=== PATIENT | female | born 1940 | race Caucasian/White ===

== ENCOUNTER 2019-12-04 15:10 | Outpatient (CLI) | payer MEDICARE, OTHER, SELFPAY ==
--- NOTE | 2019-12-04 15:13 | MM_ITS ---
WS: [id number] SCREENING DIGITAL MAMMOGRAM WITH CAD HISTORY: SCREENING COMPARISON: 01/24/2018 and 07/08/2015 Bilateral CC and MLO views submitted. Computer aided detection analyzed. Breast composition: There are scattered areas of fibroglandular density. No suspicious masses, microc alcifications or architectural distortion. Extensive bilateral vascular calcifications. MM/[place] [id number] IMPRESSION: BI-RADS: 2-Benign FOLLOW UP: 1 Year Follow-up
== END 2019-12-04 15:11 | disposition home or self-care (01) ==
LOC: RADSHAW 15:10
PROVIDERS: Family Provider Family Medicine; PCP Nurse Practitioner Family; Visit Provider Nurse Practitioner Family
DX: Z12.31 Encounter for screening mammogram for malignant neoplasm of breast (principal)
CPT/HCPCS: 77067

== ENCOUNTER 2021-02-08 13:29 | Outpatient (CLI) | payer MEDICARE, BC, SELFPAY ==
--- NOTE | 2021-02-08 13:48 | US_ITS ---
WS: [id number] TRANSABDOMINAL PELVIC AND TRANSVAGINAL PELVIC ULTRASOUND HISTORY: PELVIC PAIN COMPARISON: None available. Uterus: 6.3 cm x 3.1 cm x 2.3 cm. Small anteverted uterus. Very echogenic uterus containing calcifica tions. No fibroid identified. Endometrium: 0.2 cm. Thin endometrium is poorly visualized throughout its course. Poor visualization is in part due to the multiple senile calcifications within the uterus. Right ovary: Not identified. No adnexal mass. Left ovary: 1.2 cm x 0.9 cm x 1.5 cm. Small caliber atrophic ovary. No additional mass. No free fluid. US/US pelvic with transvaginal IMPRESSION: 1. Small caliber atrophic uterus with calcifications. 2. Poor visualization of the endometrium. 3. No pelvic mass.
== END 2021-02-08 13:30 | disposition home or self-care (01) ==
LOC: RAD 13:39
PROVIDERS: PCP Nurse Practitioner Family; Visit Provider Nurse Practitioner Family
DX: R10.2 Pelvic and perineal pain (principal); N85.8 Other specified noninflammatory disorders of uterus
CPT/HCPCS: 76830; 76856

== ENCOUNTER 2021-09-15 13:22 | Outpatient (CLI) | payer MEDICARE, BC, SELFPAY ==
--- NOTE | 2021-09-15 13:29 | MM_ITS ---
WS: [id number] BILATERAL DIGITAL SCREENING MAMMOGRAPHY WITH CAD CLINICAL INFORMATION: SCREENING HISTORY: Screening mammogram. No current complaints. COMPARISON: December 04, 2019 TECHNIQUE: Bilateral CC and MLO views. FINDINGS: Scattered fibroglandular densities bilaterally. Lucent centered calcifications. Eggshell calcificatio ns. Vascular calcification. No suspicious focal mass, asymmetry, calcifications, or architectural dis tortion. No evidence of malignancy. MM/[place] [id number] IMPRESSION: BI-RADS: 2-Benign FOLLOW UP: 1 Year Follow-up Recommend return to annual screening mammography.
== END 2021-09-15 13:23 | disposition home or self-care (01) ==
LOC: RADSHAW 13:27
PROVIDERS: PCP Nurse Practitioner Family; Visit Provider Nurse Practitioner Family
DX: Z12.31 Encounter for screening mammogram for malignant neoplasm of breast (principal)
CPT/HCPCS: 77067

== ENCOUNTER → 2022-01-19 13:09 | Outpatient (BNVA) | payer MEDICARE, BC, SELFPAY | PROVIDERS: PCP Nurse Practitioner Family; Visit Provider Internal Medicine Cardiovascular Disease | DX: R06.02 Shortness of breath (principal); R42 Dizziness and giddiness; Z79.01 Long term (current) use of anticoagulants; I47.1 Supraventricular tachycardia; R03.0 Elevated blood-pressure reading, without diagnosis of hypertension | CPT/HCPCS: 99214 ==

== ENCOUNTER 2022-01-31 14:17 | Outpatient (CLI) | payer MEDICARE, BC, SELFPAY ==
[2022-01-31 14:57] LABS: Basophils % 0.6 %; Eosinophils # 0.2 10^3/uL (0.0-0.8); Eosinophils % 3.1 %; Hematocrit 36.1 % (37.0-47.0); Hemoglobin 11.7 g/dL (11.5-15.3); Lymphocytes # 2.7 10^3/uL (0.8-4.8); Lymphocytes % 39.6 %; Mean Corpuscular HGB Conc 32.4 g/dL (30.0-36.0); Mean Corpuscular Hemoglobin 27.5 pg (28.0-34.0); Mean Corpuscular Volume 84.9 fl (81-99); Mean Platelet Volume 9.6 fL (7.4-10.4); Monocytes # 0.6 10^3/uL (0.2-0.9); Monocytes % 8.4 %; Neutrophils # 3.23 10^3/uL (1.8-7.7); Neutrophils % 47.9 %; Nucleated Red Blood Cells % 0 %; Platelet Count 260 10^3/cmm (130-400); Red Blood Count 4.25 10^6/uL (4.1-5.3); Red Cell Distribution Width 13.9 % (12.1-15.1); White Blood Count 6.8 10^3/uL (4.0-10.0)
[2022-01-31 15:30] LABS: Anion Gap 17.4 (5-19); Blood Urea Nitrogen 19 mg/dL (8-23); Calcium 9.9 mg/dL (8.5-10.5); Carbon Dioxide 24 mmol/L (22-29); Chloride 102 mmol/L (98-107); Glucose 92 mg/dL (65-115); Osmolality Calculated 290 mOsm/kg (285-295); Potassium 4.4 mmol/L (3.5-5.1); Sodium 139 mmol/L (136-145); Thyroid Stimulating Hormone 2.98 uIU/mL (0.27-4.20)
== END 2022-01-31 14:18 | disposition home or self-care (01) ==
LOC: LAB 14:24
PROVIDERS: PCP Nurse Practitioner Family; Visit Provider Internal Medicine Cardiovascular Disease
DX: R06.02 Shortness of breath (principal); R42 Dizziness and giddiness; Z79.01 Long term (current) use of anticoagulants; I47.1 Supraventricular tachycardia; N18.9 Chronic kidney disease, unspecified
CPT/HCPCS: 36415; 80048; 84443; 85025

== ENCOUNTER 2022-03-07 14:19 | Outpatient (CLI) | payer MEDICARE, OTHER, SELFPAY ==
--- NOTE | 2022-03-07 14:27 | XR_ITS ---
WS: [email or web address] XR cervical spine 3V* [id number] REASON FOR EXAM: NECK PAIN FINDINGS: Exaggerated lordosis of the cervical spine on the lateral view. Mild scoliosis of the cervical spine on the AP view convex left. There is a wedge-shaped compression deformity of C6 which appears chronic in nature with large anteri or osteophytes. No focal abnormality in the remainder of the cervical vertebrae. Severe narrowing of the C5-C6 and C6-C7 disc space spaces with 2 mm of anterolisthesis of C5 in relat ion to C6. Severe degenerative arthropathy in the uncovertebral joints on the right C3-C7. Milder changes on the left. Normal facet joint alignment. XR/XR cervical spine 3V* [id number] IMPRESSION: Altered cervical spine curvature as above. Degenerative spondylosis most severe C5-C6 as above. There has been progression of the degenerative spondylosis and the exaggerated lordosis compared to the cervical spine of 11/12/2008.
--- NOTE | 2022-03-07 14:28 | XR_ITS ---
WS: [email or web address] XR thoracic spine 2V [id number] REASON FOR EXAM: ACUTE, MIDLINE THORACIC BACK PAIN FINDINGS: Rightward scoliosis of the thoracic spine. Mild kyphosis Moderately severe decrease bone density. There are mild concave endplate compression deformities of T8-T12. Difficult to evaluate these verteb francesca on the lateral due to the scoliosis and decreased bone density. There appear to be degenerative d isc changes indicating these findings are chronic. XR/XR thoracic spine 2V [id number] IMPRESSION: Scoliosis. No definite acute abnormality.
== END 2022-03-07 14:20 | disposition home or self-care (01) ==
PROVIDERS: PCP Nurse Practitioner Family; Visit Provider Nurse Practitioner Family
DX: M54.2 Cervicalgia (principal); M54.6 Pain in thoracic spine; M41.84 Other forms of scoliosis, thoracic region; M47.892 Other spondylosis, cervical region
CPT/HCPCS: 72040; 72070

== ENCOUNTER 2022-03-23 14:22 | Outpatient (RCR) | payer MEDICARE, OTHER, SELFPAY | END 2022-03-28 23:59 | disposition home or self-care (01) | LOC: SPT 14:22 | PROVIDERS: PCP Nurse Practitioner Family; Referring Provider Nurse Practitioner Family; Visit Provider Nurse Practitioner Family | DX: S39.011D Strain of muscle, fascia and tendon of abdomen, subsequent encounter (principal); X58.XXXD Exposure to other specified factors, subsequent encounter; M54.2 Cervicalgia; M54.6 Pain in thoracic spine | CPT/HCPCS: 97161 ==

== ENCOUNTER 2022-03-29 06:00 | Outpatient (RCR) | payer MEDICARE, OTHER, SELFPAY | END 2022-04-27 23:59 | disposition home or self-care (01) | LOC: SPT 06:00 | PROVIDERS: PCP Nurse Practitioner Family; Referring Provider Nurse Practitioner Family; Visit Provider Nurse Practitioner Family | DX: M54.2 Cervicalgia (principal); R10.9 Unspecified abdominal pain; M25.511 Pain in right shoulder | CPT/HCPCS: 97110 ==

== ENCOUNTER 2022-04-28 06:00 | Outpatient (RCR) | payer MEDICARE, OTHER, SELFPAY | END 2022-05-28 23:59 | disposition home or self-care (01) | LOC: SPT 06:00 | PROVIDERS: PCP Nurse Practitioner Family; Referring Provider Nurse Practitioner Family; Visit Provider Nurse Practitioner Family | DX: M54.2 Cervicalgia (principal); R10.9 Unspecified abdominal pain; M25.511 Pain in right shoulder | CPT/HCPCS: 97110 ==

== ENCOUNTER 2022-05-29 06:00 | Outpatient (RCR) | payer MEDICARE, OTHER, SELFPAY | END 2022-06-07 23:59 | disposition home or self-care (01) | LOC: SPT 06:00 | PROVIDERS: PCP Nurse Practitioner Family; Visit Provider Nurse Practitioner Family | DX: M54.2 Cervicalgia (principal); R10.9 Unspecified abdominal pain; M25.511 Pain in right shoulder | CPT/HCPCS: 97110 ==

== ENCOUNTER → 2022-07-27 15:26 | Outpatient (BNVA) | payer MEDICARE, OTHER, SELFPAY | PROVIDERS: Visit Provider Internal Medicine Cardiovascular Disease | DX: Z79.01 Long term (current) use of anticoagulants (principal); R53.83 Other fatigue; R06.02 Shortness of breath; N18.9 Chronic kidney disease, unspecified; R25.2 Cramp and spasm; I47.1 Supraventricular tachycardia; R03.0 Elevated blood-pressure reading, without diagnosis of hypertension; R42 Dizziness and giddiness | CPT/HCPCS: 36415; 80048; 83735; 83880; 84443; 85025; 99214 ==

== ENCOUNTER 2022-08-24 15:04 | Outpatient (CLI) | payer MEDICARE, OTHER, SELFPAY ==
--- NOTE | 2022-08-24 | XR_ITS ---
WS: [email or web address] Exam: XR lumbar spine 6V w f/e [id number] Date/Time of Exam: 08/24/2022 3:46 PM Reason For Exam: LUMBAR RADICULOPATHY No fracture or dislocation. Moderate levoscoliosis. There is spondylosis and degenerative disc change at all levels. There is degenerative anterolisthesis of L2 on L3 most accentuated in flexion. There is about 7 mm forward movement of L2. Facet arthropathy at all levels. Straightening of the lumbar lo rdosis. DJD and bony sclerosis of the SI joints. XR/XR lumbar spine 6V w f/e [id number] IMPRESSION: 1. Degenerative spondylolisthesis of L2 on L3 with about 7 mm forward movement of L2 most accentuated in flexion. 2. No acute fracture. 3. Advanced degenerative changes and moderate levoscoliosis. Osteopenia.
--- NOTE | 2022-08-24 | XR_ITS ---
WS: [email or web address] RIGHT SHOULDER: 3 VIEW(S) TECHNIQUE: Internal and external rotation with Y view. HISTORY: RT SHOULDER JOINT PAIN COMPARISON: None available. Severe narrowing of the AC joint. Mild narrowing of the glenohumeral joint with osteophytic ridging a round the glenoid and humeral head. There is a sclerotic line through the humeral neck but no definit e fracture. The sclerotic line was also on a chest radiograph from 2018. Visualized ribs are negative. RIGHT upper lung is negative. XR/XR shoulder RT min 2V* [id number] IMPRESSION: Degenerative changes at the AC joint and glenohumeral joint. No fracture.
== END 2022-08-24 15:05 | disposition home or self-care (01) ==
PROVIDERS: PCP Family Medicine; Visit Provider Family Medicine
DX: M25.511 Pain in right shoulder (principal); M54.16 Radiculopathy, lumbar region; M43.16 Spondylolisthesis, lumbar region; M85.80 Other specified disorders of bone density and structure, unspecified site; M41.86 Other forms of scoliosis, lumbar region
CPT/HCPCS: 72114; 73030

== ENCOUNTER 2022-10-03 13:19 | Outpatient (CLI) | payer MEDICARE, OTHER, SELFPAY ==
--- NOTE | 2022-10-03 13:24 | CT_ITS ---
WS: [email or web address] CT HEAD TECHNIQUE: Noncontrast CT of the head obtained from the skullbase to the vertex. CLINICAL INFORMATION: DIZZINESS/FREQUENT FALLS/GAIT DISTURBANCE COMPARISON: None. DLP: 1115.[address] scans at [facility] use at least one of these dose optimization techniques: automated e xposure control; mA and/or kV adjustment per patient size (includes targeted exams where dose is matc hed to clinical indication); or iterative reconstruction. FINDINGS: No evidence of intracranial hemorrhage or mass effect. Ventricular system and basal cisterns are schmid nt. Mild small vessel changes with mild parenchymal volume loss. No extra-axial fluid collections. No evidence of mass or mass effect. Cavernous carotid calcification. Polypoid mucosal thickening involv ing the ethmoid air cells. Retention cysts LEFT maxillary sinus. Mastoid air cells are well aerated. Normal posterior nasopharynx. CT/CT head wo con* [id number] IMPRESSION: 1. No evidence of intracranial hemorrhage or mass effect. 2. Mild small vessel changes. Mild parenchymal volume loss. 3. Polypoid mucosal thickening in the ethmoid air cells with retention cyst LE FT maxillary sinus. 4. No acute intracranial findings.
== END 2022-10-03 13:20 | disposition home or self-care (01) ==
LOC: RAD 13:20
PROVIDERS: PCP Family Medicine; Visit Provider Family Medicine
DX: R42 Dizziness and giddiness (principal); Z91.81 History of falling; R26.89 Other abnormalities of gait and mobility
CPT/HCPCS: 70450

== ENCOUNTER 2023-01-11 14:47 | Outpatient (CLI) | payer MEDICARE, OTHER, SELFPAY ==
--- NOTE | 2023-01-11 14:59 | MM_ITS ---
WS: [email or web address] BILATERAL 3D TOMOSYNTHESIS DIGITAL SCREENING MAMMOGRAPHY WITH CAD CLINICAL INFORMATION: SCREENING HISTORY: Screening mammogram. No current complaints. COMPARISON: 2020 TECHNIQUE: Bilateral CC and MLO views. FINDINGS: Scattered fibroglandular densities bilaterally. No suspicious focal mass, asymmetry, calcifications, or architectural distortion. No evidence of malignancy. Vascular calcification. A few incidental punc pereyra and lucent centered calcifications. MM/[place] [id number] IMPRESSION: BI-RADS: 2-Benign FOLLOW UP: 1 Year Follow-up Recommend return to annual screening mammography.
== END 2023-01-11 14:48 | disposition home or self-care (01) ==
LOC: RAD 14:48
PROVIDERS: PCP Family Medicine; Visit Provider Family Medicine
DX: Z12.31 Encounter for screening mammogram for malignant neoplasm of breast (principal)
CPT/HCPCS: 77063; 77067

== ENCOUNTER → 2023-02-01 14:14 | Outpatient (BNVA) | payer MEDICARE, OTHER, SELFPAY | PROVIDERS: PCP Family Medicine; Visit Provider Internal Medicine Cardiovascular Disease | DX: R53.83 Other fatigue (principal); R03.0 Elevated blood-pressure reading, without diagnosis of hypertension; I47.1 Supraventricular tachycardia; R42 Dizziness and giddiness; Z79.82 Long term (current) use of aspirin | CPT/HCPCS: 99214 ==

== ENCOUNTER 2023-02-16 12:43 | Outpatient (CLI) | payer MEDICARE, OTHER, SELFPAY ==
--- NOTE | 2023-02-16 12:54 | XR_ITS ---
WS: [email or web address] DEXA (DUAL ENERGY X-RAY ABSORPTIOMETRY) Bone mineral density was performed using a uStudio machine. HISTORY: SCREENING FOR OSTEOPOROSIS COMPARISON: 07/08/2015 Lumbar spine BMD (L2-L4): 1.424 T score: 1.9 Z score: 4.1 Total hip BMD: Left: 1.014 g/cm2. T score: 0.1 Z score: 2.4 Right: 0.944 g/cm2. T score: -0.5 Z score: 1.8 10 year probability of a major osteoporotic fracture is 10.3%. Compared to the prior study from 07/08/2015. Lumbar spine bone mineral density has decreased by 2.7%. Bilateral hips bone mineral density has decreased by 11.5%. XR/XR DEXA axial skeleton* [id number] IMPRESSION: NORMAL BONE MINERAL DENSITY based upon the WHO classification for females. Significant decrease in bone mineral density within the lumbar spine and hips s rosa the prior study.
== END 2023-02-16 12:44 | disposition home or self-care (01) ==
LOC: RAD 12:48
PROVIDERS: PCP Family Medicine; Visit Provider Family Medicine
DX: Z13.820 Encounter for screening for osteoporosis (principal); Z78.0 Asymptomatic menopausal state
CPT/HCPCS: 77080

== ENCOUNTER 2023-04-20 10:29 | Outpatient (CLI) | payer MEDICARE, OTHER, SELFPAY ==
--- NOTE | 2023-04-20 10:41 | CT_ITS ---
WS: [id number] CT CHEST, ABDOMEN AND PELVIS WITH CONTRAST HISTORY: ABNORMAL WEIGHT LOSS TECHNIQUE: Contiguous 5 mm axial imaging performed through the chest, abdomen and pelvis with IV cont rast, oral contrast has not been provided. Coronal and sagittal reformats chest. Coronal and sagittal reformats through the abdomen and pelvis. All CT scans at [facility] use at least one of the se dose optimization techniques: automated exposure control; mA and/or kV adjustment per patient size (includes targeted exams where dose is matched to clinical indication); or iterative reconstruction. CONTRAST: Omnipaque 350; 100 mL IV. DLP: 453.39 mGy.cm COMPARISON: 02/11/[address]: Numerous bilateral and predominantly peripheral slightly spiculated nodules. These nodules are predominantly subcentimeter. The largest nodule is spiculated measuring 11 x 12 mm RIGHT lower lo be. No well-defined mass. No mediastinal or hilar adenopathy. Normal size aortic and pulmonary artery . Normal size heart. Moderate coronary artery calcific burden. Small hiatal hernia. Lytic lesion with fracture involving the superior sternum. No associated soft tissue mass. Increase i n thoracic kyphosis. No definite rib fractures are identified. Abdomen CT: Normal liver and spleen. Normal portal vein. Normal gallbladder and pancreas. Normal adre nal glands. Bilateral extrarenal pelves. Calyces are not dilated. Moderate atherosclerosis aorta. No aneurysm. Mild atherosclerosis involving the celiac axis and SMA but no high-grade stenosis. No ascit es or adenopathy. Nondistended stomach. No small bowel obstruction. Tortuous overlapping loops of colon with mild to mo derate constipation. No evidence for acute diverticulitis. No appendicitis identified. The appendix i s not visualized. Pelvic CT: Well-distended urinary bladder. Atrophic uterus. No pelvic mass, ascites or adenopathy. Advanced degenerative changes throughout the lumbar spine. Disc spaces are narrowed with chronic endp late changes. Prior fracture with healed deformity involving the RIGHT parasymphyseal pubic bone. CT/CT chest abdpel w/*[id number] IMPRESSION: 1. Numerous, bilateral, small spiculated pulmonary nodules. Majority of these nodules are less than a centimeter. The largest in the RIGHT lower lobe is 11 x 12 mm. These may be postinflammatory in etiology. Early metastatic sites are n ot excluded. Recommend follow-up chest CT in 3 months. 2. No metastatic lesions or abnormality in the liver or adrenal glands. 3. Diffuse constipation without obstruction. 4. No adenopathy or ascites. 5. Lytic area in the superior segment manubrium with fracture. No soft tissue mass. Correlate with recent history of sternal injury. Pathological fracture is not completely excluded but thought less likely if there is a history of recen t trauma.
[2023-04-20] MEDS: iohexol 350 mg/mL 500 mL Btl (per mL) IV (11:10)
[2023-04-20] MEDS: iohexol 350 mg/mL 500 mL Btl (per mL) PO (11:11)
[2023-04-20 12:24] LABS: Blood Urea Nitrogen 13 mg/dL (8-23)
== END 2023-04-20 10:30 | disposition home or self-care (01) ==
PROVIDERS: PCP Family Medicine; Visit Provider Family Medicine
DX: R63.4 Abnormal weight loss (principal); S22.20XA Unspecified fracture of sternum, initial encounter for closed fracture; X58.XXXA Exposure to other specified factors, initial encounter; Y93.9 Activity, unspecified; Y92.9 Unspecified place or not applicable; Y99.9 Unspecified external cause status; R91.8 Other nonspecific abnormal finding of lung field; K59.00 Constipation, unspecified; M95.5 Acquired deformity of pelvis
CPT/HCPCS: 71260; 74177; 82565; 84520; Q9967

== ENCOUNTER → 2023-05-15 13:32 | Outpatient (BNVA) | payer MEDICARE, OTHER, SELFPAY | PROVIDERS: PCP Family Medicine; Visit Provider Internal Medicine Pulmonary Disease | DX: R91.8 Other nonspecific abnormal finding of lung field (principal); R06.02 Shortness of breath; R63.4 Abnormal weight loss; Z68.20 Body mass index [BMI] 20.0-20.9, adult; Z77.22 Contact with and (suspected) exposure to environmental tobacco smoke (acute) (chronic) | CPT/HCPCS: 99204 ==

== ENCOUNTER 2023-05-25 09:01 | Outpatient (CLI) | payer MEDICARE, OTHER, SELFPAY ==
--- NOTE | 2023-05-25 09:29 | XR_ITS ---
WS: [email or web address] EXAMINATION: XR cervical spine 3V* [id number] Cervical spine 3 views REASON FOR EXAM: CERVICALGIA COMPARISON: 03/07/2022 FINDINGS: There is no sign of acute fracture. There is approximately 2 mm of anterolisthesis of C5 compared to C6. Vertebral body heights and intervertebral disc spaces are maintained except for prominent degene rative change narrowing and spondylosis at C6-7.. Severe degenerative arthropathy in the uncovertebra l joints on the right C3-C7. Milder changes on the left. The cervical bony alignment with mild scoliosis is affected by the prominent thoracic kyphosis.. Th ere is no prevertebral soft tissue change. XR/XR cervical spine 3V* [id number] IMPRESSION: No acute osseous abnormality. Degenerative changes especially prominent at C6-7 as noted above
--- NOTE | 2023-05-25 09:29 | XR_ITS ---
WS: [email or web address] EXAMINATION: XR elbow RT min 3V* [id number] REASON FOR EXAM: CONTUSION OF R ELBOW COMPARISON: None ORDER DATE: 05/25/2023 9:37 AM FINDINGS: There is no sign of any acute osseous or articular abnormality. There are no specific soft tissue abn ormalities. XR/XR elbow RT min 3V* [id number] IMPRESSION: No acute change
--- NOTE | 2023-05-25 09:29 | XR_ITS ---
WS: [email or web address] EXAMINATION: XR facial bones min 3V* [id number] REASON FOR EXAM: CONTUSION OF EYEBALL ORBITAL TISSUES COMPARISON: None available. ORDER DATE: 05/25/2023 9:37 AM FINDINGS: The paranasal sinuses appear to be normal. Orbital rims are intact. This does not appear to be any sp ecific soft tissue opacities or fluid levels in the sinuses. No sign of facial fracture change. XR/XR facial bones min 3V* [id number] IMPRESSION: No acute change
== END 2023-05-25 09:02 | disposition home or self-care (01) ==
PROVIDERS: PCP Family Medicine; Visit Provider Family Medicine
DX: S05.11XA Contusion of eyeball and orbital tissues, right eye, initial encounter (principal); S50.01XA Contusion of right elbow, initial encounter; X58.XXXA Exposure to other specified factors, initial encounter; M54.2 Cervicalgia
CPT/HCPCS: 70150; 72040; 73080

== ENCOUNTER 2023-07-23 13:34 | Outpatient (CLI) | payer MEDICARE, OTHER, SELFPAY ==
--- NOTE | 2023-07-23 14:00 | CT_ITS ---
WS: [email or web address] CT chest wo con [id number] HISTORY: follow up on lung nodules TECHNIQUE: Axial imaging performed through the thorax. Coronal and sagittal reformats are submitted. All CT scans at [facility] use at least one of these dose optimization techniques: automated exposure control; mA and/or kV adjustment per patient size (includes targeted exams where dose is mat ched to clinical indication); or iterative reconstruction. CONTRAST: None DLP: 223.67 mGy.cm COMPARISON: 04/20/2023 Lungs and central airway: Chronic hyperinflation. Interstitial thickening in the periphery of both giulia ngs. The multiple previously described pulmonary nodules and mild asymmetries and opacifications have not improved. There has been a minimal increase in size of some of the nodules in the RIGHT lower lo be. Adjacent to the focal ill-defined opacification in the RIGHT lower lobe is a new nodule measuring approximately 4 mm. The changes are very subtle involving these nodules therefore could be due to vo lume averaging and slice selection. Pleura: Normal. No pleural effusion. Heart and pericardium: Normal size heart with no pericardial effusion. Mediastinum and kang: No mediastinum or hilar adenopathy. Vessels: Moderate atherosclerosis aorta. Aorta is ectatic. Mildly prominent pulmonary artery. Extensi ve coronary artery calcifications. Chest wall and lower neck: No soft tissue masses. Upper abdomen: Normal. Osseous structures: Reidentified is a destructive lytic lesion in the superior sternal body. Lytic ch anges have progressed since the prior study. There is mild increased soft tissue adjacent to the ster nal fracture which may be pathologic. There are new right-sided rib fractures. These are contiguous a nd may be posttraumatic. Some of these do demonstrate callus formation. These rib fractures are new s rosa 04/20/2023. IMPRESSION: 1. Continued bilateral pulmonary nodules and opacifications. Majority of these have remained stable. There has been a slight increase in size of some of the nodules and there is a new 4 mm nodule in the RIGHT lower lobe adjacent to the previously described opacification. Differential includes benign an d postinflammatory etiologies. Metastatic disease is not excluded. 2. Progression of the destructive lytic lesion involving the superior sternal body. Suspicious for me tastatic site. 3. New contiguous RIGHT rib fractures. Very stages of healing. Due to the appearance of these lesions they're probably posttraumatic with healing.
== END 2023-07-23 13:35 | disposition home or self-care (01) ==
PROVIDERS: PCP Family Medicine; Visit Provider Internal Medicine Pulmonary Disease
DX: R91.8 Other nonspecific abnormal finding of lung field (principal); M89.9 Disorder of bone, unspecified; S22.41XA Multiple fractures of ribs, right side, initial encounter for closed fracture; X58.XXXA Exposure to other specified factors, initial encounter
CPT/HCPCS: 71250

== ENCOUNTER → 2023-08-09 14:37 | Outpatient (BNVA) | payer MEDICARE, OTHER, SELFPAY | PROVIDERS: PCP Family Medicine; Visit Provider Internal Medicine Cardiovascular Disease | DX: I47.10 Supraventricular tachycardia, unspecified (principal); R03.0 Elevated blood-pressure reading, without diagnosis of hypertension; R42 Dizziness and giddiness; R53.83 Other fatigue | CPT/HCPCS: 99214 ==

== ENCOUNTER → 2023-08-17 09:03 | Outpatient (BNVA) | payer MEDICARE, OTHER, SELFPAY | PROVIDERS: PCP Family Medicine; Visit Provider Internal Medicine Pulmonary Disease | DX: R91.8 Other nonspecific abnormal finding of lung field (principal); R06.02 Shortness of breath; Z77.22 Contact with and (suspected) exposure to environmental tobacco smoke (acute) (chronic) | CPT/HCPCS: 99214 ==

== ENCOUNTER 2023-09-11 13:57 | Outpatient (CLI) | payer MEDICARE, OTHER, SELFPAY ==
--- NOTE | 2023-09-11 11:00 | PETR_ITS ---
PROCEDURE INFORMATION: Exam: PET/CT Skull Base to Mid-thigh Exam date and time: 09/11/2023 11:32 AM Age: 82 years old Clinical indication: Abnormal findings; Abnormal CT LABS AND CLINICAL REPORTS: Glucose: 116 mg/dl Treatment strategy for malignancy (PET staging): Initial Staging (PI) TECHNIQUE: Imaging protocol: Following at least four-hour fasting and following the injection of radiopharmaceutical, low dose CT images were obtained. Then, PET images were obtained. Attenuation corrected images were constructed using the CT scan. Fused images of PET and CT were reviewed. The standardized uptake values (SUV) reported below are maximum values within a region of interest, expressed in gm/ml. Exam includes orbital meatal line to mid-thigh. Radiopharmaceutical: 12.05 mCi F-18 FDG (Fluorodeoxyglucose), IV. Time of imaging post radiopharmaceutical administration: 1 hour Injection site: Information is currently not available COMPARISON: CT chest wo con 07/23/2023 and 04/20/2023 FINDINGS: Brain: Visualized brain has normal physiologic uptake. Pharynx: No abnormal uptake. Larynx: No abnormal uptake. Lungs, pleura and trachea: No abnormal uptake. Cluster of small nodules posteriorly in the right lower lobe on axial image 83 and 4 mm nodule in the right lower lobe on image 85 are not FDG avid (1.1 SUV). No pleural effusion. Heart: Normal physiologic uptake. There is no cardiomegaly. Severe coronary artery calcification is present. There is no pericardial effusion. Mediastinal space: No abnormal uptake. Liver: No abnormal uptake. Gallbladder and bile ducts: No abnormal uptake. No calcified gallstones. Pancreas: No abnormal uptake. Spleen: No abnormal uptake. No splenomegaly. Adrenal glands: No abnormal uptake. No nodules. Kidneys and ureters: Normal physiologic uptake. No hydronephrosis. Stomach and bowel: No abnormal uptake. Vasculature: No abnormal uptake. No aortic aneurysm. Lymph nodes: No abnormal uptake. No lymphadenopathy in the head, neck, chest, abdomen, pelvis, and extremities. Bones/joints: Mildly increased uptake of 3.2 SUV within the chronic sternal fracture representing benign posttraumatic finding. Chronic fractures in the right ribs 8-11 persists since 07/23/2023, new since 04/20/2023. There are old fractures in bilateral ischiopubic rami and in the right pubic bone. There is degenerative sclerosis on both sides of the right sacroiliac joint. There are degenerative changes in both shoulders with synovial effusion on the right side with maximal fluid with thickness of 1.4 cm in the subdeltoid bursa. Soft tissues: No abnormal uptake in the visualized head, neck, chest, abdomen, pelvis, and extremities. PET/PET skulltothigh INITIAL [id number] IMPRESSION: No abnormal radiotracer uptake to suggest malignancy. No abnormal uptake in small lung nodules in the right lower lobe.
== END 2023-09-11 13:58 | disposition home or self-care (01) ==
LOC: RAD 13:57
PROVIDERS: PCP Family Medicine; Visit Provider Internal Medicine Pulmonary Disease
DX: R91.8 Other nonspecific abnormal finding of lung field (principal)
CPT/HCPCS: 78815; A9552

== ENCOUNTER 2023-10-03 12:53 | Outpatient (CLI) | payer MEDICARE, OTHER, SELFPAY | END 2023-10-03 12:54 | disposition home or self-care (01) | LOC: RT 12:53 | PROVIDERS: PCP Family Medicine; Visit Provider Internal Medicine Pulmonary Disease | DX: R06.02 Shortness of breath (principal) | CPT/HCPCS: 94010; 94618; 94726; 94729 ==

== ENCOUNTER → 2024-01-11 07:53 | Outpatient (BNVA) | payer MEDICARE, OTHER, SELFPAY | PROVIDERS: PCP Family Medicine; Visit Provider Internal Medicine Pulmonary Disease | DX: M19.90 Unspecified osteoarthritis, unspecified site (principal); R91.8 Other nonspecific abnormal finding of lung field; R06.02 Shortness of breath; R63.4 Abnormal weight loss | CPT/HCPCS: 85651; 86038; 86140; 86200; 86225; 86235; 86431; 99214 ==

== ENCOUNTER 2024-01-28 11:19 | Outpatient (CLI) | payer MEDICARE, OTHER, SELFPAY ==
--- NOTE | 2024-01-28 11:21 | MM_ITS ---
WS: [email or web address] BILATERAL SCREENING DIGITAL TOMOSYNTHESIS MAMMOGRAM WITH CAD HISTORY: SCREENING COMPARISON: 01/11/2023 and 09/15/2021 Bilateral CC and MLO views with tomosynthesis and synthetic mammography submitted. Computer aided det ection analyzed. Breast composition: There are scattered areas of fibroglandular density. No suspicious masses, microc alcifications or architectural distortion. Benign arterial calcifications in each breast. IMPRESSION: MM/[place] [id number] BI-RADS: 2-Benign FOLLOW UP: 1 Year Follow-up
== END 2024-01-28 11:20 | disposition home or self-care (01) ==
LOC: RAD 11:19
PROVIDERS: PCP Family Medicine; Visit Provider Family Medicine
DX: Z12.31 Encounter for screening mammogram for malignant neoplasm of breast (principal)
CPT/HCPCS: 77063; 77067

== ENCOUNTER → 2024-03-03 15:43 | Outpatient (BNVA) | payer MEDICARE, OTHER, SELFPAY | PROVIDERS: PCP Family Medicine; Visit Provider Internal Medicine Cardiovascular Disease | DX: I47.10 Supraventricular tachycardia, unspecified (principal) | CPT/HCPCS: 93005 ==

== ENCOUNTER 2024-03-03 16:05 | Emergency (ER) | payer MEDICARE, OTHER, SELFPAY ==
--- NOTE | 2024-03-03 16:12 | ECG_ITS ---
[facility] Test Date: 2024-03-03 Pat Name: Ginger Delaney Department: Room: Gender: Female [employer] Fe[employer]: : 1940 Requested By: Lopez Montero Order Number: [id number] Barbi MD: Charles Carrera M.D. Measurements Intervals [place] Rate: 171 P: 0 MS: 0 QRS: -10 QRSD: 99 T: -12 QT: 249 QTc: 420 Interpretive Statements SUPRAVENTRICULAR TACHYCARDIA INCOMPLETE RIGHT BUNDLE BRANCH BLOCK [90+ ms QRS DURATION, TERMINAL R IN V1/V2, 40+ ms S IN I/aVL/V4/V5/V6] INFERIOR MYOCARDIAL INFARCTION , OF INDETERMINATE AGE [40+ ms Q WAVE AND/OR ST/T ABNORMALITY IN II/aVF] CRITICAL TEST RESULT Compared to ECG 03/03/2024 15:50:15 Myocardial infarct finding now present ST (T wave) deviation no longer present Electronically Signed On 03-03-2024 23:21:50 CDT by Charles Carrera M.D. [id number]
[2024-03-03 16:16] VITALS: BP 97/68; PULSE 171; RESP 18; TEMP 36.7; O2SAT 96; BMI 20.5
--- NOTE | 2024-03-03 16:24 | ED_ITS ---
HPI - Arrhythmia/Palpitations General: Chief Complaint: Arrhythmia/Palpitations Stated Complaint: dr. 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 Associated symptoms: Deny nausea or vomiting Review of Systems Const: Denies: fever(s), chills, body aches or change in appetite ENMT: Denies: throat pain or dental pain Card: Reports: palpitations; Denies: chest pain Resp: Denies: dyspnea GI: Denies: abdominal pain, nausea, vomiting or diarrhea Musc: Denies: neck pain or back pain Skin/Breast: Denies: rash Neuro: Denies: headache(s) PFSH ED PFSH: Medical History SVT (supraventricular tachycardia) Surgical History S/P carpal tunnel release Family History Mother CAD (coronary artery disease) unknown age of onset Father CAD (coronary artery disease) unknown age of onset Daughter Cancer Other Heart disease Denies family history of Diabetes Clotting disorder Dementia Chronic kidney disease (CKD) Suicide Anesthesia complication Bleeding disorder Lung disease Stroke Social History Smoking and tobacco/nicotine status: never used tobacco/nicotine Alcohol intake: never Substance/Drug Use: never Physical Exam Const: COMMON NORMALS: no acute distress, patient oriented x3 and healthy appearing HENMT: COMMON NORMALS: normocephalic and atraumatic HEAD & SCALP: normocephalic and atraumatic Neck/C-Spine: COMMON NORMALS: full ROM and supple Chest: COMMONS NORMALS: normal inspection of the chest Resp: COMMON NORMALS: normal respiratory effort Cardio: RATE: tachycardic Extremity: COMMON NORMALS: normal to inspection and full ROM Neuro: COMMON NORMALS: patient oriented x3, moves all extremities and no focal motor deficits Psych: COMMON NORMALS: mental status grossly normal, Normal thought process present and cooperative THOUGHT PROCESS: Normal thought process present Skin: COMMON NORMALS: no rashes or lesions noted and no wounds GENERAL SKIN EXAM: no rashes or lesions noted Course Vital Signs: Vital signs: Vital Signs Temperature 98.1 F 03/03/24 16:16 Pulse Rate 76 03/03/24 17:10 Respiratory Rate 18 03/03/24 16:16 Blood Pressure 97/68 03/03/24 16:16 Pulse Oximetry 100 03/03/24 17:10 Oxygen Delivery Me thod Room Air 03/03/24 17:10 MDM - Arrhythmia/Palpitations Medical Decision Making Patient presents here with SVT she is converted here with adenosine she stable for discharge she needs to fill her metoprolol she is follow-up with PCP return if worsening. Medical Records I reviewed the patient's medical records. Lab Data I reviewed the patient's lab results. No radiology studies performed this visit EKG Data EKG 1: I personally reviewed and interpreted this EKG as follows: EKG interpretation date: 03/03/24 EKG interpretation time: 16:12 Interpretation: svt hr [address] or t wave abnormalities qrs 99 qtc 341 EKG 2: I personally reviewed and interpreted this EKG as follows: EKG interpretation date: 03/03/24 EKG interpretation time: 16:42 Interpretation: nsr hr [address] or t wave abnormalities qrs 90 qtc 376 Discharge Plan Discharge Patient Disposition: Home Clinical Impression: SVT (supraventricular tachycardia) Condition: Stable Prescriptions: No Action calcium carbonate 600 mg calcium (1,500 mg) tablet 600 mg PO DAILY multivitamin Tablet 1 tab PO DAILY ibuprofen [Advil] 200 mg tablet 200 mg PO Q6H PRN aspirin [Adult Low Dose Aspirin] 81 mg tablet,delayed release (DR/EC) 81 mg PO DAILY PRN potassium chloride 10 mEq tablet extended release 10 meq PO DAILY Qty: 90 3RF hydrochlorothiazide 12.5 mg tablet 12.5 mg PO .AM Qty: 90 3RF metoprolol tartrate 25 mg tablet 12.5 mg PO BID Qty: 90 3RF Discharge Orders: Discharge ED (Routine); Ordered 03/03/24 Ordered By: Lopez Montero Referrals: Ronaldo Leyva MD [Primary Care Provider] - 1-3 days Discharge Diet: Advance as tolerated Discharge Activity: Resume usual activity Patient Instructions: Supraventricular Tachycardia (ED) Coding Level of Care Code ED Human Performance Professor for Jessica Johnson
[2024-03-03] MEDS: adenosine 3 mg/mL SDV 2mL 6 MG IVP (16:39)
[2024-03-03] MEDS: sodium chloride 0.9% 1,000 ML 999 ML IV (16:39)
--- NOTE | 2024-03-03 16:42 | ECG_ITS ---
[facility] Test Date: 2024-03-03 Pat Name: Ginger Delaney Department: Room: Gender: Female Chiropractor Sole Practitioner: : 1940 Requested By: Lopez Montero Order Number: [id number] Barbi MD: Charles Carrera M.D. Measurements Intervals Elliott Rate: 85 P: 64 IL: 169 QRS: 61 QRSD: 90 T: 52 QT: 334 QTc: 398 Interpretive Statements SINUS RHYTHM POSSIBLE RIGHT VENTRICULAR CONDUCTION DELAY [RSR (QR) IN V1/V2] Compared to ECG 03/03/2024 16:12:51 Supraventricular tachycardia no longer present Incomplete right bundle-branch block no longer present Myocardial infarct finding no longer present Electronically Signed On 03-03-2024 23:21:29 CDT by Charles Carrera M.D. [id number]
[2024-03-03 17:10] VITALS: PULSE 76; O2SAT 100
[2024-03-03 17:26] VITALS: BP 137/83; PULSE 74; O2SAT 99
== END 2024-03-03 17:27 | disposition home or self-care (01) ==
PROVIDERS: Emergency Provider Emergency Medicine; PCP Family Medicine
DX: I47.10 Supraventricular tachycardia, unspecified (principal); I95.89 Other hypotension; I45.19 Other right bundle-branch block
CPT/HCPCS: 93005; 96361; 96374; 99214; 99284; J0153; J7030

== ENCOUNTER → 2024-09-22 09:55 | Outpatient (BNVA) | payer MEDICARE, OTHER, SELFPAY | PROVIDERS: PCP Family Medicine; Visit Provider Nurse Practitioner Family | DX: I47.10 Supraventricular tachycardia, unspecified (principal); I10 Essential (primary) hypertension | CPT/HCPCS: 99214 ==

== ENCOUNTER 2024-10-03 09:57 | Outpatient (CLI) | payer MEDICARE, OTHER, SELFPAY ==
--- NOTE | 2024-10-03 10:00 | CT_ITS ---
WS: [id number] CT chest wo con [id number] HISTORY: MULTIPLE LUNG NODULES TECHNIQUE: Axial imaging performed through the thorax. Coronal and sagittal reformats are submitted. All CT scans at [facility] use at least one of these dose optimization techniques: automated exposure control; mA and/or kV adjustment per patient size (includes targeted exams where dose is mat ched to clinical indication); or iterative reconstruction. CONTRAST: None DLP: 284.20 mGy.cm COMPARISON: 07/23/2023, 04/20/2023, Lungs and central airway: Moderate pulmonary hyperinflation with emphysema. Subcentimeter pulmonary n odules are reidentified. None of these nodules appear to have increased in size. There is slight incr ease in reticular nodular opacification in the posterior RIGHT lower lobe. Pleura: Normal. No pleural effusion. Heart and pericardium: Moderate cardiomegaly. Mediastinum and kang: Mediastinal and hilar lymph nodes are identified. Without IV contrast change in size of the lymph nodes or malignant adenopathy would be difficult to exclude. Vessels: Marked atherosclerosis aorta. Mildly dilated pulmonary artery. Chest wall and lower neck: No soft tissue masses. Upper abdomen: Normal. Osseous structures: Marked increase in thoracic kyphosis. Disc bases are narrowed. Prior fracture wit h healing superior sternal body. Numerous healed RIGHT rib fractures. CT/CT chest wo con [id number] IMPRESSION: 1. Severe emphysema. 2. Bilateral pulmonary nodules have remained stable in size since 2022. 3. Reticular nodular opacification in the RIGHT lower lobe is slightly more pr ominent as compared to 07/23/2023. Recommend additional 6-month noncontrast ches t CT follow-up. 4. Atherosclerosis aorta. 5. Increase in thoracic kyphosis.
== END 2024-10-03 09:58 | disposition home or self-care (01) ==
LOC: RAD 09:57
PROVIDERS: PCP Family Medicine; Visit Provider Family Medicine
DX: R91.8 Other nonspecific abnormal finding of lung field (principal); J43.9 Emphysema, unspecified; I51.7 Cardiomegaly; I70.0 Atherosclerosis of aorta; M40.204 Unspecified kyphosis, thoracic region
CPT/HCPCS: 71250

== ENCOUNTER 2024-12-19 12:58 | Outpatient (CLI) | payer MEDICARE, OTHER, SELFPAY ==
--- NOTE | 2024-12-19 13:04 | MR_ITS ---
WS: [id number] MRI RIGHT SHOULDER NONCONTRAST TECHNIQUE: Sagittal T2, coronal T1, T2 and proton density imaging. Axial gradient PDE imaging. CLINICAL INFORMATION: OSTEOARTHRITIS RIGHT SHOULDER COMPARISON: None. FINDINGS: Osteopenia. Markedly advanced degenerative arthritis AC joint and glenohumeral articulation. Advanced narrowing of the glenohumeral articulation with hypertrophic spurring along the medial humeral neck. Complete loss of the joint space. Mild downsloping acromion with narrowing of the subacromial space. Advanced arthritis at the AC joint with fluid and edema. Associated synovial thickening with subchondral cystic changes and hypertrophic changes. Subacromial subdeltoid fluid. Associated edema within the humeral head with subchondral cystic change involving the glenoid. Small area of suspected osteonecrosis along the superomedial humeral head articular surface with serpiginous low signal. High-grade complete tear of the supraspinatus with a fluid-filled defect with tendon retraction measuring approximately 13 mm. Tendon retraction to the level of the glenohumeral joint. Chronic atrophy of the infraspinatus with chronic thinning of the distal tendon. Atrophic teres minor which appears intact. Subscapularis tendon appears intact distally. Atrophy of the subscapularis muscle belly. Biceps tendon appears intact within the bicipital groove. Tendinopathy intra-articular biceps tendon which appears intact. Intrasubstance tear of the proximal intra-articular biceps tendon at the margin of the bici pital groove. MR/MR shoulder RT wo con* [id number] IMPRESSION: 1. Markedly advanced degenerative arthritis involving the glenohumeral joint a nd AC joint. [id number] articulation of the glenohumeral joint with hypertrop hic spurring along the medial humeral neck. Small amount humeral head sclerosis suspicious for osteonecrosis along the superior medial articular surface 2. Subchondral cystic change with sclerosis involving the bony glenoid. 3. Severe arthritis involving the AC joint with fluid and edema. Associated sy novial thickening with mild downsloping acromion. Subacromial subdeltoid fluid. 4. Chronic atrophy of the rotator cuff with high-grade complete tear of the conde praspinatus with tendon retraction to the glenohumeral joint. 5. Biceps tendon appears intact within the bicipital groove. Tendinopathy with intrasubstance tear involving the proximal intra-articular biceps tendon as it exits the bicipital groove.
== END 2024-12-19 12:59 | disposition home or self-care (01) ==
LOC: RAD 12:59
PROVIDERS: PCP Family Medicine; Visit Provider Orthopaedic Surgery
DX: M19.011 Primary osteoarthritis, right shoulder (principal); R93.6 Abnormal findings on diagnostic imaging of limbs; M62.511 Muscle wasting and atrophy, not elsewhere classified, right shoulder; M75.121 Complete rotator cuff tear or rupture of right shoulder, not specified as traumatic; S46.211A Strain of muscle, fascia and tendon of other parts of biceps, right arm, initial encounter; X58.XXXA Exposure to other specified factors, initial encounter; M85.80 Other specified disorders of bone density and structure, unspecified site
CPT/HCPCS: 73221

== ENCOUNTER → 2025-04-06 10:41 | Outpatient (BNVA) | payer MEDICARE, OTHER, SELFPAY | PROVIDERS: PCP Family Medicine; Visit Provider Internal Medicine Cardiovascular Disease | DX: R06.02 Shortness of breath (principal) | CPT/HCPCS: 36415; 80048; 99214 ==

== ENCOUNTER 2025-04-13 09:40 | Outpatient (CLI) | payer MEDICARE, OTHER, SELFPAY ==
--- NOTE | 2025-04-13 09:47 | CT_ITS ---
WS: [id number] CT chest wo con [id number] HISTORY: MULTIPLE NODULES OF LUNG TECHNIQUE: Axial imaging performed through the thorax. Coronal and sagittal reformats are submitted. All CT scans at [facility] use at least one of these dose optimization techniques: automated exposure control; mA and/or kV adjustment per patient size (includes targeted exams where dose is matched to clinical indication); or iterative reconstruction. CONTRAST: None DLP: 216.84 mGy.cm COMPARISON: 10/03/2024 07/23/2023, 04/20/2023 Lungs and central airway: Marked pulmonary hyperexpansion with centrilobular emphysema. Peripheral scarring with pleural thickening and tagging. Irregular opacification superior segment RIGHT lower lobe is reidentified but is smaller in size overall. More linear in configuration suggesting scarring or chronic atelectasis. Subcentimeter nodules in the periphery of the RIGHT lower lobe stable since 04/20/2023. Honeycombing with bronchiectasis RIGHT middle lobe. Small area of honeycombing and bronchiectasis at the lingula. Pleura: No effusions. Heart and pericardium: Normal size heart with no pericardial effusion. Mediastinum and kang: No enlarged mediastinal or hilar lymph nodes. Vessels: Moderate atherosclerosis aorta. Mildly ectatic and aneurysmal ascending aorta to 3.8 cm. Pulmonary artery slightly dilated. Chest wall and lower neck: No soft tissue masses. Upper abdomen: Mild atherosclerotic plaque suprarenal aorta. Limited without IV contrast. Osseous structures: Thoracolumbar scoliosis. Prior fracture with healing involving the sternum. Additional healed RIGHT rib fractures. New LEFT posterior fifth, sixth and seventh rib fractures. Healing LEFT scapular fracture with callus formation. CT/CT chest wo con [id number] IMPRESSION: 1. Significant improvement in the nodular opacification in the RIGHT lower lob e which has decreased in size and is now more linear suggesting scar or atelect asis. 2. Additional scattered areas of pleural-parenchymal disease are stable. Pulmo nary nodules are stable. 3. 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 4. Thoracolumbar scoliosis. 5. New LEFT scapular fracture, LEFT rib fractures involving the fifth, sixth a nd seventh ribs since the prior exam of 10/03/2024. There is callus formation an d some healing of the scapular fracture suggesting that it is not acute.
== END 2025-04-13 09:41 | disposition home or self-care (01) ==
PROVIDERS: PCP Family Medicine; Visit Provider Family Medicine
DX: R91.8 Other nonspecific abnormal finding of lung field (principal); M41.9 Scoliosis, unspecified; S22.42XA Multiple fractures of ribs, left side, initial encounter for closed fracture; S42.102A Fracture of unspecified part of scapula, left shoulder, initial encounter for closed fracture; X58.XXXA Exposure to other specified factors, initial encounter
CPT/HCPCS: 71250

== ENCOUNTER 2025-04-24 12:07 | Outpatient (CLI) | payer MEDICARE, OTHER, SELFPAY ==
--- NOTE | 2025-04-24 12:40 | MM_ITS ---
WS: [email or web address] BILATERAL 3D TOMOSYNTHESIS DIGITAL SCREENING MAMMOGRAPHY WITH CAD CLINICAL INFORMATION: SCREENING HISTORY: Screening mammogram. No current complaints. COMPARISON: 2023 TECHNIQUE: Bilateral CC and MLO views. FINDINGS: Scattered fibroglandular densities bilaterally. No suspicious focal mass, asymmetry, calcifications, or architectural distortion. No evidence of malignancy. Vascular calcifications. A few incidental punctate and lucent centered calcifications. MM/MM [facility] tomosynthesis [id number] IMPRESSION: DENSITY: There are scattered areas of fibroglandular density. BI-RADS: 2 - Benign. FOLLOW UP: 1 Year Follow-up Recommend return to annual screening mammography.
== END 2025-04-24 12:08 | disposition home or self-care (01) ==
PROVIDERS: PCP Family Medicine; Visit Provider Family Medicine
DX: Z12.31 Encounter for screening mammogram for malignant neoplasm of breast (principal); R92.323 Mammographic fibroglandular density, bilateral breasts; R92.1 Mammographic calcification found on diagnostic imaging of breast
CPT/HCPCS: 77063; 77067

== ENCOUNTER 2025-05-08 13:06 | Outpatient (CLI) | payer MEDICARE, OTHER, SELFPAY ==
--- NOTE | 2025-05-08 13:18 | XR_ITS ---
WS: [email or web address] SCREENING DEXA SCAN backstitch CLINICAL INFORMATION: HX OF FRAGILITY FX/OSTEOPOROSIS COMPARISON: 2022 FINDINGS: Lumbar scoliosis. The L1-L4 bone mineral density measures 1.280 g/cm2. This corresponds to a T score score of 0.8 and Z score of 3.1. Left femoral neck bone mineral density measures 1.025 g/cm2. This corresponds to a T score of 0.1 and Z score of 2.6. Right femoral neck bone mineral density measures 0.922 g/cm2. This corresponds to a T score -0.7of and Z score of 1.8. Mean femoral neck bone mineral density measures 0.974 g/cm2. This corresponds to a T score of -0.3 and Z score of 2.2. XR/XR DEXA axial skeleton* [id number] IMPRESSION: Normal bone mineralization. Patient's FRAX calculated 10 year probability for major osteoporotic fracture i s 10.8% and osteoporotic hip fracture is 1.5%. Bone mineral density lumbar spine decreased -6.1% Bone mineral density femoral necks decreased -0.5%
== END 2025-05-08 13:07 | disposition home or self-care (01) ==
LOC: RAD 13:07
PROVIDERS: PCP Family Medicine; Visit Provider Family Medicine
DX: Z13.820 Encounter for screening for osteoporosis (principal); Z87.311 Personal history of (healed) other pathological fracture
CPT/HCPCS: 77080

== ENCOUNTER 2025-07-24 10:08 | Outpatient (CLI) | payer MEDICARE, OTHER, SELFPAY ==
--- NOTE | 2025-07-24 | MM_ITS ---
WS: [id number] BILATERAL SCREENING DIGITAL TOMOSYNTHESIS MAMMOGRAM WITH CAD HISTORY: ANNUAL SCREENING COMPARISON: 04/24/2025, 01/28/2024 Bilateral CC and MLO views with tomosynthesis and synthetic mammography submitted. Computer aided detection analyzed. Breast composition: There are scattered areas of fibroglandular density. No suspicious masses, microcalcifications or architectural distortion. Moderate bilateral breast arterial calcifications. MM/MM [facility] tomosynthesis [id number] IMPRESSION: BI-RADS: 2 - Benign. FOLLOW UP: 1 Year Follow-up
== END 2025-07-24 10:09 | disposition home or self-care (01) ==
LOC: RAD 10:11
PROVIDERS: PCP Family Medicine; Visit Provider Family Medicine
DX: Z12.31 Encounter for screening mammogram for malignant neoplasm of breast (principal); R92.323 Mammographic fibroglandular density, bilateral breasts; R92.1 Mammographic calcification found on diagnostic imaging of breast
CPT/HCPCS: 77063; 77067